=== PATIENT | female | born 1990 | race African-American/Black ===

== ENCOUNTER 2020-03-24 16:32 | Inpatient (IN) | payer MEDICAID ==
[~2020-03-24] VITALS: Ht 165.1 cm; Wt 80.7 kg
[2020-03-24] MEDS ORDERED: LACTATED RINGERS 1,000 ML IV SCH (16:40)
[2020-03-24] MEDS ORDERED: ONDANSETRON 8 MG in NACL 0.9% 50 ML IV PRN (17:00)
[2020-03-24] MEDS ORDERED: MORPHINE SULFATE 4 MG/ML SYR IVP PRN (17:00)
[2020-03-24] MEDS ORDERED: ONDANSETRON 4 MG/2 ML VIAL ONE ×2 (17:04→21:41)
[2020-03-24] MEDS ORDERED: MORPHINE SULFATE 4 MG/ML SYR ONE (17:04)
[2020-03-24 17:16] LABS: BASOPHILS % (AUTO) 0.2 % (0.0-2.0); EOSINOPHILS % (AUTO) 0.2 % (0.0-4.0); HEMATOCRIT 24.9 % (36-48); HEMOGLOBIN 7.6 g/dL (12.0-16.0); LYMPHOCYTES # (AUTO) 2.4 K/uL (2.5-16.5); LYMPHOCYTES % (AUTO) 16.1 % (20.5-51.1); MEAN CORPUSCULAR HEMOGLOBIN 24 pg (27-31); MEAN CORPUSCULAR HGB CONC 31 g/dL (33-37); MEAN CORPUSCULAR VOLUME 78.1 fL (80-94); MONOCYTES # (AUTO) 0.9 K/uL (0.8-1.0); MONOCYTES % (AUTO) 6.2 % (1.7-9.3); NEUTROPHILS # (AUTO) 11.6 K/uL (1.8-7.7); NEUTROPHILS % (AUTO) 77.3 % (42.2-75.2); PLATELET COUNT (AUTO) 205 K/uL (140-450); RED BLOOD CELL COUNT(AUTO) 3.18 MIL/uL (4.20-5.40); RED CELL DISTRIBUTION WIDTH 18.1 % (11.6-13.7)
[2020-03-24 17:47] LABS: PROTHROMBIN TIME 10.4 secs (10.8-13.4)
[2020-03-24] MEDS ORDERED: LABETALOL 100 MG/20 ML VIAL IV SCH (17:50)
[2020-03-24 17:53] LABS: ALBUMIN 2.4 g/dL (3.4-5.0); ANION GAP 14.9 (8-16); CARBON DIOXIDE 20.3 mmol/L (21-32); CREATININE 0.9 mg/dL (0.6-1.3); POTASSIUM 3.2 mmol/L (3.5-5.1); TOTAL BILIRUBIN 0.3 mg/dL (0.0-1.0); URIC ACID 4.7 mg/dL (2.6-7.2)
[2020-03-24] MEDS ORDERED: LABETALOL 100 MG/20 ML VIAL ONE (17:53)
[2020-03-24] MEDS ORDERED: MORPHINE SULFATE 5 MG/ML VIAL IVP PRN (18:35)
[2020-03-24] MEDS ORDERED: MORPHINE SULFATE 10 MG/ML VIAL ONE (18:38)
[2020-03-24 18:39] LABS: APPEARANCE,URINE CLOUDY (CLEAR); BILIRUBIN,URINE NEGATIVE (NEGATIVE); BLOOD, URINE 3+ (NEGATIVE); COLOR,URINE AMBER (YELLOW); LEUKOCYTE ESTERASE ,URINE TRACE (NEGATIVE); NITRITE, URINE NEGATIVE (NEGATIVE); UGLUCOSE NEGATIVE (NEGATIVE)
[2020-03-24 18:40] VITALS: BP 123/75
[2020-03-24 18:56] LABS: RBC,URINE 80-100 /HPF (0-5); WBC,URINE 0-5 /HPF (0-5)
[2020-03-24 19:17] LABS: BARBITURATE, URINE NEGATIVE ng/ml (NEG <=200)
[2020-03-24 19:18] LABS: BENZODIAZEPINE, URINE NEGATIVE ng/mL (NEG <=200); CANNABINOID, URINE NEGATIVE ng/mL (NEG <=50); COCAINE, URINE NEGATIVE ng/mL (NEG <=300); OPIATE, URINE POSITIVE ng/mL (NEG <=2000); PHENCYCLIDINE SCREEN,URINE NEGATIVE ng/mL (NEG <=25)
[2020-03-24] MEDS ORDERED: MORPHINE PRES FREE 10 MG/10 ML AMP IV ONE (21:09)
[2020-03-24] MEDS ORDERED: ceFAZolin 1,000 MG VIAL ONE (21:34)
[2020-03-24] MEDS ORDERED: OXYTOCIN 10 UNITS/ML VIAL ONE (21:41)
[2020-03-24] MEDS ORDERED: OXYTOCIN 20 UNITS in LACTATED RINGERS 1,000 ML IV SCH (22:07)
[2020-03-24] MEDS ORDERED: KETOROLAC 30 MG/ML VIAL IVP PRN (22:10)
[2020-03-24] MEDS ORDERED: NALOXONE 0.4 MG/ML VIAL IVP PRN ×2 (22:10)
[2020-03-24] MEDS ORDERED: ONDANSETRON 4 MG/2 ML VIAL IVP PRN (22:10)
[2020-03-24] MEDS ORDERED: OXYTOCIN 10 UNITS in LACTATED RINGERS 1,000 ML IV SCH (22:46)
[2020-03-24] MEDS ORDERED: METHYLERGONOVINE 0.2 MG/ML AMP IM PRN (22:50)
[2020-03-24] MEDS ORDERED: MEASLES, MUMPS, AND RUBELLA 1 VIAL SQVAC PRN (22:50)
[2020-03-24] MEDS ORDERED: CAMERA MC ONE (23:07)
[2020-03-25 02:06] LABS: HEMATOCRIT 26.5 % (36-48); HEMOGLOBIN 8.4 g/dL (12.0-16.0)
[2020-03-25] MEDS ORDERED: OXYTOCIN 20 UNITS/LR PREMIX 1,000 ML IV ONE (05:08)
[2020-03-25 06:46] LABS: BASOPHILS % (AUTO) 0.1 % (0.0-2.0); EOSINOPHILS % (AUTO) 0.1 % (0.0-4.0); HEMATOCRIT 23.4 % (36-48); HEMOGLOBIN 7.5 g/dL (12.0-16.0); LYMPHOCYTES # (AUTO) 1.5 K/uL (2.5-16.5); LYMPHOCYTES % (AUTO) 9.2 % (20.5-51.1); MEAN CORPUSCULAR HEMOGLOBIN 26 pg (27-31); MEAN CORPUSCULAR HGB CONC 32 g/dL (33-37); MEAN CORPUSCULAR VOLUME 81.8 fL (80-94); MONOCYTES # (AUTO) 1.2 K/uL (0.8-1.0); MONOCYTES % (AUTO) 7.3 % (1.7-9.3); NEUTROPHILS # (AUTO) 13.5 K/uL (1.8-7.7); NEUTROPHILS % (AUTO) 83.3 % (42.2-75.2); PLATELET COUNT (AUTO) 117 K/uL (140-450); RED BLOOD CELL COUNT(AUTO) 2.87 MIL/uL (4.20-5.40); RED CELL DISTRIBUTION WIDTH 17.9 % (11.6-13.7); WHITE BLOOD COUNT (AUTO) 16.2 K/uL (4.8-10.8)
[2020-03-25] MEDS: diphenhydrAMINE 50 MG/ML VIAL IVP PRN ×2 (06:47→09:27)
[2020-03-25] MEDS ORDERED: MORPHINE SULFATE 4 MG/ML SYR IVP SCH (08:40)
[2020-03-25] MEDS ORDERED: bisacodyL 10 MG SUPP RC SCH (09:00)
[2020-03-25] MEDS ORDERED: LACTATED RINGERS 500 ML IV SCH (09:05)
[2020-03-25] MEDS ORDERED: PROMETH/CODEINE 6.25-10MG/5ML 5 ML UDC PO PRN (13:10)
[2020-03-25 13:36] LABS: HEMATOCRIT 20.5 % (36-48)
[2020-03-25 13:54] LABS: HEMOGLOBIN 6.6 g/dL (12.0-16.0)
[2020-03-25] MEDS ORDERED: ACETAMINOPHEN EXTRA STRENGTH 500 MG TAB PO SCH (14:00)
[2020-03-25] MEDS ORDERED: diphenhydrAMINE 50 MG/ML VIAL IVP SCH (14:00)
[2020-03-25] MEDS ORDERED: NIFEdipine 30 MG TABER PO SCH ×2 (17:00→20:30)
[2020-03-25 18:33] LABS: APPEARANCE,URINE CLOUDY (CLEAR); COLOR,URINE YELLOW (YELLOW)
[2020-03-25 18:34] LABS: BILIRUBIN,URINE NEGATIVE (NEGATIVE); BLOOD, URINE 3+ (NEGATIVE); LEUKOCYTE ESTERASE ,URINE NEGATIVE (NEGATIVE); NITRITE, URINE NEGATIVE (NEGATIVE); PH,URINE 5.5 (5.0-9.0); UGLUCOSE NEGATIVE (NEGATIVE)
[2020-03-25 19:19] LABS: RBC,URINE 20-50 /HPF (0-5)
[2020-03-25] MEDS ORDERED: OXYTOCIN 20 UNITS in LACTATED RINGERS 1,000 ML IV SCH (22:46)
--- NOTE | 2020-03-26 06:46 | NUR ---
PATIENT HAS BEEN SCREENED AND CATEGORIZED LOW NUTRITION RISK. PATIENT WILL BE SEEN WITHIN 7 DAYS OF ADMISSION. 03/31/[address]
[2020-03-26 07:01] LABS: HEMATOCRIT 26.3 % (36-48); HEMOGLOBIN 8.6 g/dL (12.0-16.0)
[2020-03-26] MEDS ORDERED: NIFEdipine 60 MG TABER PO SCH (09:00)
[2020-03-26] MEDS: oxyCODONE/APAP 5/325 MG 1 TAB TAB PO PRN ×2 (09:52→18:35)
[2020-03-27] MEDS: oxyCODONE/APAP 5/325 MG 1 TAB TAB PO PRN ×3 (08:25→20:26)
[2020-03-27] MEDS ORDERED: OXYTOCIN 10 UNITS in LACTATED RINGERS 1,000 ML IV SCH (08:31)
[2020-03-27] MEDS ORDERED: MEASLES, MUMPS, AND RUBELLA 1 VIAL SQVAC PRN (08:35)
[2020-03-27] MEDS ORDERED: METHYLERGONOVINE 0.2 MG/ML AMP IM PRN (08:35)
[2020-03-27] MEDS ORDERED: bisacodyL 10 MG SUPP RC SCH (09:00)
[2020-03-27] MEDS: NIFEdipine 60 MG TABER PO SCH (09:27)
--- NOTE | 2020-03-27 16:06 | NUR ---
DIGITAL ACCOUNT DIRECTOR NOTE: SW VISITED PATIENT AT BEDSIDE TO PROVIDE COUNSELING SERVICES. SW PROVIDED PSYCHOEDUCATION TO HEALTH PLANS AND PROVIDED HOMELESS RESOURCES AND BEREAVEMENT RESOURCES. SW DISCUSSED WITH PATIENT POSSIBLE HEALTH PLANS THAT PATIENT CAN ENROLL IN. PATIENT VERBALIZED UNDERSTANDING AND STATED SHE WOULD CONTACT HEALTH PLANS RIGHT NOW. Addendum: 03/28/20 at 1031 by Fernandez Brown SS BRITTANIE WAS CONTACTED BY MELLY ONOFRE TO MEET WITH PATIENT. BRITTANIE MET WITH PATIENT AT BEDSIDE. SW PROVIDED MORTUARY RESOURCES UPON PATIENT'S REQUEST. SW ANSWERED QUESTIONS REGARDING INSURANCE HEALTH PLANS. NO FURTHER NEEDS IDENTIFIED.
[2020-03-27] MEDS ORDERED: PROMETHAZINE 25 MG/ML VIAL IVP PRN (18:45)
[2020-03-27] MEDS ORDERED: CARBOPROST 250 MCG/ML AMP IM PRN (18:45)
[2020-03-28] MEDS ORDERED: CAMERA MC ONE (04:15)
[2020-03-28 05:39] LABS: BASOPHILS % (AUTO) 0.2 % (0.0-2.0); EOSINOPHILS # (AUTO) 0.3 K/uL (0-0.4); EOSINOPHILS % (AUTO) 2.7 % (0.0-4.0); HEMATOCRIT 24.7 % (36-48); HEMOGLOBIN 8.2 g/dL (12.0-16.0); LYMPHOCYTES # (AUTO) 1.6 K/uL (2.5-16.5); LYMPHOCYTES % (AUTO) 15.2 % (20.5-51.1); MEAN CORPUSCULAR HEMOGLOBIN 27 pg (27-31); MEAN CORPUSCULAR HGB CONC 33 g/dL (33-37); MEAN CORPUSCULAR VOLUME 81.2 fL (80-94); MONOCYTES # (AUTO) 0.6 K/uL (0.8-1.0); MONOCYTES % (AUTO) 5.4 % (1.7-9.3); NEUTROPHILS # (AUTO) 8.3 K/uL (1.8-7.7); NEUTROPHILS % (AUTO) 76.5 % (42.2-75.2); PLATELET COUNT (AUTO) 222 K/uL (140-450); RED BLOOD CELL COUNT(AUTO) 3.04 MIL/uL (4.20-5.40); RED CELL DISTRIBUTION WIDTH 17.8 % (11.6-13.7); WHITE BLOOD COUNT (AUTO) 10.8 K/uL (4.8-10.8)
[2020-03-28] MEDS ORDERED: OXYTOCIN 20 UNITS in LACTATED RINGERS 1,000 ML IV SCH (08:31)
[2020-03-28] MEDS: NIFEdipine 60 MG TABER PO SCH (08:37)
== END 2020-03-28 16:25 | disposition home or self-care (01) | DRG 540 ==
LOC: MLD 16:32 → OBSVTOIN 18:30 → MFCC 23:55
PROVIDERS: ADMIT Obstetrics & Gynecology; ATTEND Obstetrics & Gynecology
PROC: 30233N1 Transfusion of Nonautologous Red Blood Cells into Peripheral Vein, Percutaneous Approach (ICD-10-PCS; 2020-03-24)
PROC: 10D00Z1 Extraction of Products of Conception, Low, Open Approach (ICD-10-PCS; principal; 2020-03-24 21:15)
PROC: 3E0234Z Introduction of Serum, Toxoid and Vaccine into Muscle, Percutaneous Approach (ICD-10-PCS; 2020-03-27)
DX: O36.5930 Maternal care for other known or suspected poor fetal growth, third trimester, not applicable or unspecified (principal); O36.4XX0 Maternal care for intrauterine death, not applicable or unspecified; O99.324 Drug use complicating childbirth; O45.93 Premature separation of placenta, unspecified, third trimester; R03.0 Elevated blood-pressure reading, without diagnosis of hypertension; F15.90 Other stimulant use, unspecified, uncomplicated; O99.62 Diseases of the digestive system complicating childbirth; K66.1 Hemoperitoneum; O99.89 Other specified diseases and conditions complicating pregnancy, childbirth and the puerperium; O99.02 Anemia complicating childbirth; R00.0 Tachycardia, unspecified; D62 Acute posthemorrhagic anemia; N85.7 Hematometra; Z3A.31 31 weeks gestation of pregnancy; Z37.1 Single stillbirth; Z59.0 Homelessness; Z23 Encounter for immunization
CPT/HCPCS: 36415; 51702; 76805; 76819; 80053; 80305; 81001; 84550; 85018; 85025; 85384; 85610; 85730; 86592; 86886; 86900; 86901; 86920; 87086; 90715; 93005; G0378; J0690; J0696; J1200; J2270; J2405; J2590; J3490; J7060; J7120; P9016; Q0092

== ENCOUNTER 2023-02-28 10:22 | Inpatient (IN) | payer MEDICAID ==
[~2023-02-28] VITALS: Ht 165.1 cm; Wt 82.6 kg
[2023-02-28 10:39] VITALS: BP 135/98; PULSE 50; RESP 20; TEMP 97.5; O2SAT 100
[2023-02-28] MEDS: LACTATED RINGERS 1,000 ML IV SCH ×3 (10:39→21:39)
[2023-02-28] MEDS ORDERED: LACTATED RINGERS 500 ML IV ONE (10:50)
[2023-02-28] MEDS ORDERED: NACL 0.9% 1,000 ML IV SCH ×2 (10:50→12:55)
[2023-02-28] MEDS ORDERED: METHYLERGONOVINE 0.2 MG/ML AMP IM PRN (10:50)
[2023-02-28] MEDS ORDERED: CARBOPROST 250 MCG/ML AMP IM PRN (10:50)
[2023-02-28] MEDS ORDERED: NALBUPHINE 10 MG/ML AMP IVP PRN (11:20)
[2023-02-28] MEDS ORDERED: ONDANSETRON 4 MG/2 ML VIAL IVP PRN ×2 (11:20→22:55)
[2023-02-28] MEDS ORDERED: NALBUPHINE 10 MG/ML AMP ONE (11:35)
[2023-02-28 11:41] LABS: BASOPHILS % (AUTO) 0.3 % (0.0-2.0); EOSINOPHILS % (AUTO) 0.2 % (0.0-4.0); LYMPHOCYTES # (AUTO) 1.3 K/uL (2.5-16.5); LYMPHOCYTES % (AUTO) 8.3 % (20.5-51.1); MEAN CORPUSCULAR HEMOGLOBIN 20 pg (27-31); MEAN CORPUSCULAR HGB CONC 31 g/dL (33-37); MONOCYTES # (AUTO) 1.1 K/uL (0.8-1.0); MONOCYTES % (AUTO) 7.3 % (1.7-9.3); NEUTROPHILS # (AUTO) 12.6 K/uL (1.8-7.7); NEUTROPHILS % (AUTO) 83.9 % (42.2-75.2); PLATELET COUNT (AUTO) 117 K/uL (140-450)
[2023-02-28 11:53] LABS: HEMATOCRIT 14.3 % (36-48); HEMOGLOBIN 4.4 g/dL (12.0-16.0)
[2023-02-28 12:15] LABS: ALBUMIN 2.2 g/dL (3.4-5.0); CARBON DIOXIDE 20.1 mmol/L (21-32); CREATININE 0.8 mg/dL (0.6-1.3); POTASSIUM 3.1 mmol/L (3.5-5.1); TOTAL BILIRUBIN 0.6 mg/dL (0.0-1.0); URIC ACID 3.4 mg/dL (2.6-7.2)
--- NOTE | 2023-02-28 12:35 | NUR ---
PATIENT HAS BEEN SCREENED AND CATEGORIZED LOW NUTRITION RISK. PATIENT WILL BE SEEN WITHIN 7 DAYS OF ADMISSION. 03/07/[address]
[2023-02-28] MEDS ORDERED: POTASSIUM CHLORIDE 40 MEQ, LIDOCAINE 1% 25 MG in NACL 0.9% 250 ML IV SCH (14:00)
[2023-02-28 15:16] LABS: APPEARANCE,URINE CLEAR (CLEAR); BILIRUBIN,URINE NEGATIVE (NEGATIVE); BLOOD, URINE 3+ (NEGATIVE); COLOR,URINE YELLOW (YELLOW); LEUKOCYTE ESTERASE ,URINE TRACE (NEGATIVE); NITRITE, URINE NEGATIVE (NEGATIVE); UGLUCOSE NEGATIVE (NEGATIVE)
[2023-02-28 15:29] LABS: BARBITURATE, URINE NEGATIVE ng/ml (NEG <=200); BENZODIAZEPINE, URINE NEGATIVE ng/mL (NEG <=200); CANNABINOID, URINE POSITIVE ng/mL (NEG <=50); COCAINE, URINE NEGATIVE ng/mL (NEG <=300); OPIATE, URINE NEGATIVE ng/mL (NEG <=2000); PHENCYCLIDINE SCREEN,URINE NEGATIVE ng/mL (NEG <=25)
[2023-02-28 15:32] LABS: RBC,URINE 11-20 (MOD) /HPF (0-5)
[2023-02-28] MEDS: KETOROLAC 30 MG/ML VIAL IVP SCH (18:04)
[2023-02-28] MEDS ORDERED: ceFAZolin 2,000 MG VIAL ONE (20:12)
[2023-02-28] MEDS ORDERED: fentaNYL citrate 0.05 MG/ML VIAL ONE (21:04)
[2023-02-28] MEDS ORDERED: CAMERA MC ONE (22:10)
[2023-02-28] MEDS ORDERED: SUGAMMADEX SODIUM 200 MG/2 ML VIAL IV ONE (22:34)
[2023-02-28 22:50] LABS: BASOPHILS % (AUTO) 0.2 % (0.0-2.0); LYMPHOCYTES % (AUTO) 8.2 % (20.5-51.1); MEAN CORPUSCULAR HEMOGLOBIN 25 pg (27-31); MEAN CORPUSCULAR HGB CONC 33 g/dL (33-37); MEAN CORPUSCULAR VOLUME 75.3 fL (80-94); MONOCYTES # (AUTO) 0.9 K/uL (0.8-1.0); MONOCYTES % (AUTO) 7.8 % (1.7-9.3); NEUTROPHILS # (AUTO) 10.1 K/uL (1.8-7.7); NEUTROPHILS % (AUTO) 83.8 % (42.2-75.2); PLATELET COUNT (AUTO) 72 K/uL (140-450); RED BLOOD CELL COUNT(AUTO) 2.51 MIL/uL (4.20-5.40); WHITE BLOOD COUNT (AUTO) 12.1 K/uL (4.8-10.8)
[2023-02-28 22:54] LABS: HEMATOCRIT 18.9 % (36-48); HEMOGLOBIN 6.2 g/dL (12.0-16.0)
[2023-02-28] MEDS ORDERED: HYDROmorphone 1 MG/ML AMP IVP PRN (22:55)
[2023-02-28 23:05] LABS: PROTHROMBIN TIME 15.4 secs (10.8-13.4)
[2023-02-28 23:06] LABS: ALBUMIN 2.1 g/dL (3.4-5.0); ANION GAP 13.3 (8-16); CARBON DIOXIDE 21.9 mmol/L (21-32); CREATININE 0.6 mg/dL (0.6-1.3); POTASSIUM 5.2 mmol/L (3.5-5.1); TOTAL BILIRUBIN 0.6 mg/dL (0.0-1.0)
[2023-02-28] MEDS ORDERED: HYDROmorphone PFS 2 MG/ML SYR ONE (23:32)
[2023-03-01] MEDS: LACTATED RINGERS 1,000 ML IV SCH ×2 (01:20→01:55)
[2023-03-01] MEDS ORDERED: KETOROLAC 30 MG/ML VIAL IVP PRN (02:00)
[2023-03-01] MEDS ORDERED: oxyCODONE/APAP 5/325 MG 1 TAB TAB PO PRN (02:00)
[2023-03-01] MEDS ORDERED: MEASLES, MUMPS, AND RUBELLA 1 VIAL SQVAC ONE (02:00)
[2023-03-01] MEDS ORDERED: METHYLERGONOVINE 0.2 MG/ML AMP IM PRN (02:00)
[2023-03-01] MEDS ORDERED: OXYTOCIN 20 UNITS/LR PREMIX 1,000 ML IV ONE ×2 (02:53→11:45)
[2023-03-01] MEDS: OXYTOCIN 20 UNITS in LACTATED RINGERS 1,000 ML IV SCH ×3 (04:26→20:57)
[2023-03-01] MEDS: KETOROLAC 30 MG/ML VIAL IVP SCH ×3 (06:13→17:55)
[2023-03-01] MEDS ORDERED: HYDROmorphone 1 MG/ML AMP IVP PRN (09:40)
[2023-03-01 16:24] LABS: BASOPHILS % (AUTO) 0.2 % (0.0-2.0); LYMPHOCYTES # (AUTO) 1.3 K/uL (2.5-16.5); LYMPHOCYTES % (AUTO) 7.8 % (20.5-51.1); MEAN CORPUSCULAR HEMOGLOBIN 27 pg (27-31); MEAN CORPUSCULAR HGB CONC 33 g/dL (33-37); MEAN CORPUSCULAR VOLUME 82.9 fL (80-94); MONOCYTES # (AUTO) 1.2 K/uL (0.8-1.0); MONOCYTES % (AUTO) 7.1 % (1.7-9.3); NEUTROPHILS # (AUTO) 14.6 K/uL (1.8-7.7); NEUTROPHILS % (AUTO) 84.9 % (42.2-75.2); PLATELET COUNT (AUTO) 159 K/uL (140-450); RED BLOOD CELL COUNT(AUTO) 1.39 MIL/uL (4.20-5.40); RED CELL DISTRIBUTION WIDTH 23.5 % (11.6-13.7); WHITE BLOOD COUNT (AUTO) 17.2 K/uL (4.8-10.8)
[2023-03-01 16:39] LABS: PROTHROMBIN TIME 10.3 secs (10.8-13.4)
[2023-03-01 16:40] LABS: ALBUMIN 1.5 g/dL (3.4-5.0); ANION GAP 11.4 (8-16); CARBON DIOXIDE 24.6 mmol/L (21-32); CREATININE 0.7 mg/dL (0.6-1.3); HEMOGLOBIN 3.8 g/dL (12.0-16.0); TOTAL BILIRUBIN 0.3 mg/dL (0.0-1.0)
[2023-03-01 16:41] LABS: HEMATOCRIT 11.6 % (36-48)
[2023-03-01] MEDS: SIMETHICONE 80 MG TAB.CHEW PO PRN (17:59)
[2023-03-01] MEDS: HYDROmorphone 2 MG TAB PO PRN (20:39)
[2023-03-02 06:12] LABS: BASOPHILS % (AUTO) 0.2 % (0.0-2.0); EOSINOPHILS % (AUTO) 0.3 % (0.0-4.0); HEMATOCRIT 21.9 % (36-48); HEMOGLOBIN 7.6 g/dL (12.0-16.0); LYMPHOCYTES # (AUTO) 1.5 K/uL (2.5-16.5); MEAN CORPUSCULAR HEMOGLOBIN 29 pg (27-31); MEAN CORPUSCULAR HGB CONC 35 g/dL (33-37); MONOCYTES # (AUTO) 1.4 K/uL (0.8-1.0); MONOCYTES % (AUTO) 8.9 % (1.7-9.3); NEUTROPHILS # (AUTO) 12.7 K/uL (1.8-7.7); PLATELET COUNT (AUTO) 129 K/uL (140-450); RED BLOOD CELL COUNT(AUTO) 2.64 MIL/uL (4.20-5.40); RED CELL DISTRIBUTION WIDTH 16.4 % (11.6-13.7); WHITE BLOOD COUNT (AUTO) 15.6 K/uL (4.8-10.8)
[2023-03-02 07:03] LABS: LYMPHOCYTES % (AUTO) 9.5 % (20.5-51.1); NEUTROPHILS % (AUTO) 81.1 % (42.2-75.2)
[2023-03-02] MEDS: SIMETHICONE 80 MG TAB.CHEW PO PRN ×3 (08:54→17:41)
[2023-03-02] MEDS: HYDROmorphone 2 MG TAB PO PRN (08:56)
[2023-03-02] MEDS: bisacodyL 5 MG TABEC PO PRN (08:56)
[2023-03-02] MEDS ORDERED: LACTATED RINGERS 1,000 ML IV SCH (11:25)
[2023-03-02 12:34] LABS: ALBUMIN 1.5 g/dL (3.4-5.0); ANION GAP 7.8 (8-16); CARBON DIOXIDE 25.7 mmol/L (21-32); CREATININE 0.6 mg/dL (0.6-1.3); POTASSIUM 3.5 mmol/L (3.5-5.1); TOTAL BILIRUBIN 0.5 mg/dL (0.0-1.0)
[2023-03-02] MEDS: IBUPROFEN 800 MG TAB PO PRN ×2 (14:02→23:25)
[2023-03-03] MEDS ORDERED: CAMERA MC ONE (00:36)
[2023-03-03] MEDS: HYDROmorphone 2 MG TAB PO PRN ×2 (00:40→09:32)
[2023-03-03 06:06] LABS: BASOPHILS % (AUTO) 0.3 % (0.0-2.0); EOSINOPHILS # (AUTO) 0.1 K/uL (0-0.4); EOSINOPHILS % (AUTO) 0.5 % (0.0-4.0); HEMATOCRIT 22.3 % (36-48); HEMOGLOBIN 7.5 g/dL (12.0-16.0); LYMPHOCYTES # (AUTO) 1.9 K/uL (2.5-16.5); LYMPHOCYTES % (AUTO) 11.8 % (20.5-51.1); MEAN CORPUSCULAR HEMOGLOBIN 29 pg (27-31); MEAN CORPUSCULAR HGB CONC 34 g/dL (33-37); MEAN CORPUSCULAR VOLUME 86.2 fL (80-94); MONOCYTES # (AUTO) 1.2 K/uL (0.8-1.0); MONOCYTES % (AUTO) 7.5 % (1.7-9.3); NEUTROPHILS # (AUTO) 13.1 K/uL (1.8-7.7); NEUTROPHILS % (AUTO) 79.9 % (42.2-75.2); PLATELET COUNT (AUTO) 146 K/uL (140-450); RED BLOOD CELL COUNT(AUTO) 2.59 MIL/uL (4.20-5.40); RED CELL DISTRIBUTION WIDTH 17.1 % (11.6-13.7); WHITE BLOOD COUNT (AUTO) 16.4 K/uL (4.8-10.8)
[2023-03-03] MEDS: SIMETHICONE 80 MG TAB.CHEW PO PRN ×2 (09:29→15:04)
[2023-03-03] MEDS: bisacodyL 5 MG TABEC PO PRN (09:30)
[2023-03-03] MEDS ORDERED: bisacodyL 10 MG SUPP RC PRN (11:30)
[2023-03-03] MEDS ORDERED: bisacodyL 10 MG SUPP RC ONE (11:49)
[2023-03-03] MEDS ORDERED: bisacodyL 10 MG SUPP RC SCH (12:00)
[2023-03-03] MEDS: IBUPROFEN 800 MG TAB PO PRN (13:18)
[2023-03-03] MEDS ORDERED: AMMONIA AROMATIC 1 INHL INH ONE (16:06)
[2023-03-03] MEDS ORDERED: SODIUM PHOSPHATE 118 ML ENEM RC SCH (16:30)
--- NOTE | 2023-03-03 16:33 | NUR ---
Sandblasting Supervisor TOWER TECHNICIAN met with pt. at bedside. Pt. was tired and calm. Also present was pts, identified partner. The name she gave was only Kash. TOWER TECHNICIAN wanted to confirm pts. demographics. Pt. stated the address listed is her mailing addres, her moms home. Pt. stated she and partner are homeless. Upon discharge, pt. stated, "We can go to my daddy's babies home. He lives with his mom with my 14 month old baby. Pt. stated this was her second demise. The first one the baby was about 23 weeks. This time baby was 32 weeks. Pt. stated she has high blood pressure. Pt. was accepted TOWER TECHNICIAN resources for demise, grieving and bereavement counseling. TOWER TECHNICIAN spoke to Rn. Burnette who stated pt. uses drugs and placentia just exploded in the delivery. No movement. TOWER TECHNICIAN came back to pts. room to provide her with homeless resources and substance abuse . Addendum: 03/03/23 at 1711 by Agnes Ospina Sandblasting Supervisor TOWER TECHNICIAN provided pt. with homeless resources and substance abuse. Pt. stated she has been using amphet. for the past 3 years. When TOWER TECHNICIAN suggested she look into a substance abuse prg. pt. stated she is not interested because shes not strung out. Rn stated it is unknown if pts. demise are due to placenta previa and drugs.
[2023-03-04] MEDS ORDERED: CAMERA MC ONE (02:14)
[2023-03-04] MEDS: IBUPROFEN 800 MG TAB PO PRN (07:56)
== END 2023-03-04 14:38 | disposition home or self-care (01) | DRG 540 ==
LOC: MLD 10:22 → OBSVTOIN 11:15 → MFCC 03-01 01:55
PROVIDERS: ADMIT Obstetrics & Gynecology; ATTEND Obstetrics & Gynecology
PROC: 30233N1 Transfusion of Nonautologous Red Blood Cells into Peripheral Vein, Percutaneous Approach (ICD-10-PCS; 2023-02-28)
PROC: 10D00Z1 Extraction of Products of Conception, Low, Open Approach (ICD-10-PCS; principal; 2023-02-28 18:00)
PROC: 30233K1 Transfusion of Nonautologous Frozen Plasma into Peripheral Vein, Percutaneous Approach (ICD-10-PCS; 2023-03-01)
PROC: 30233R1 Transfusion of Nonautologous Platelets into Peripheral Vein, Percutaneous Approach (ICD-10-PCS; 2023-03-01)
PROC: 30233M1 Transfusion of Nonautologous Plasma Cryoprecipitate into Peripheral Vein, Percutaneous Approach (ICD-10-PCS; 2023-03-01)
DX: O36.4XX0 Maternal care for intrauterine death, not applicable or unspecified (principal); D65 Disseminated intravascular coagulation [defibrination syndrome]; O45.93 Premature separation of placenta, unspecified, third trimester; D62 Acute posthemorrhagic anemia; O99.324 Drug use complicating childbirth; O99.02 Anemia complicating childbirth; F15.10 Other stimulant abuse, uncomplicated; Z20.822 Contact with and (suspected) exposure to COVID-19; Z3A.34 34 weeks gestation of pregnancy; Z37.1 Single stillbirth
CPT/HCPCS: 36415; 51702; 76805; 80053; 80305; 81001; 84550; 85025; 85610; 85730; 86592; 86762; 86886; 86900; 86901; 86920; 87086; 87340; J0690; J1170; J1885; J2001; J2210; J2300; J2590; J3010; J3480; J7030; J7060; J7120; P9012; P9016; P9017; P9035; Q0092